=== PATIENT | female | born 1985 | race Caucasian/White ===

== ENCOUNTER → 2017-07-20 | Outpatient (CLI) | payer OTHER ==
[~2017-07-20] MED LIST: ANTI2TAB10 PO; AUGM875T PO; HYDR-3533 PO; NAPR500 PO; OXYC1TAB63 PO; PREN29TA PO; Silv Sulfadiazine-Lidocaine Cr RECTAL
[2017-07-20 11:20] LABS: AUTOMATED NEUTROPHIL # 4.3 TH/MM3 (1.8-7.7); BASOPHIL # 0.1 TH/MM3 (0-0.2); BASOPHIL % 0.9 % (0.0-2.0); EOSINOPHIL # 0.1 TH/MM3 (0-0.4); EOSINOPHIL % 2.3 % (0.0-4.0); HEMATOCRIT 35.9 % (35.0-46.0); HEMOGLOBIN 11.6 GM/DL (11.6-15.3); LYMPH % 22.6 % (9.0-44.0); LYMPHOCYTE # 1.4 TH/MM3 (1.0-4.8); MEAN CELL VOLUME 78.9 FL (80.0-100.0); MEAN CORPUSCULAR HEMOGLOBIN 25.5 PG (27.0-34.0); MEAN CORPUSCULAR HGB CONC 32.4 % (32.0-36.0); MEAN PLATELET VOLUME 8.7 FL (7.0-11.0); MONO % 5.8 % (0.0-8.0); MONOCYTE # 0.4 TH/MM3 (0-0.9); NEUT % 68.4 % (16.0-70.0); PLATELET COUNT 286 TH/MM3 (150-450); RED BLOOD COUNT 4.55 MIL/MM3 (4.00-5.30); WHITE BLOOD COUNT 6.3 TH/MM3 (4.0-11.0)
[2017-07-20 11:23] LABS: BILIRUBIN, URINE NEG (NEG); BLOOD, URINE NEG (NEG); GLUCOSE,URINE NEG (NEG); KETONE, URINE NEG (NEG); MUCUS URINE FEW /lpf (OCC); NITRITE,URINE NEG (NEG); SQUAMOUS EPITHELIAL CELL URINE 1 /hpf (0-5); URINE COLOR LIGHT-YELLOW (YELLW/STRAW); URINE LEUKOCYTE ESTERASE TRACE (NEG)
[2017-07-20 11:29] LABS: AST (GOT) 6 U/L (15-37); BICARBONATE 28.7 MEQ/L (21.0-32.0); BLOOD UREA NITROGEN 8 MG/DL (7-18); CALCIUM 9.4 MG/DL (8.5-10.1); CHLORIDE 104 MEQ/L (98-107); CREATININE 0.77 MG/DL (0.50-1.00); GLOMERULAR FILTRATION RATE 86 ML/MIN (>89); GLUCOSE,FASTING 64 MG/DL (74-99); SODIUM (NA) 140 MEQ/L (136-145)
[2017-07-20 11:31] LABS: ALT (GPT) 13 U/L (10-53)
[2017-07-20 11:33] LABS: ALKALINE PHOSPHATASE 108 U/L (45-117); TOTAL BILIRUBIN ADULT 0.3 MG/DL (0.2-1.0); TOTAL PROTEIN 7.5 GM/DL (6.4-8.2)
== END ==
LOC: CPRE 09:59
PROVIDERS: ATTEND Colon & Rectal Surgery
DX: Z01.812 Encounter for preprocedural laboratory examination (principal); N82.2 Fistula of vagina to small intestine
CPT/HCPCS: 36415; 80053; 81001; 85025

== ENCOUNTER 2017-07-27 09:43 | Observation (INO) | payer OTHER ==
[~2017-07-27] VITALS: Ht 160 cm; Wt 62.8 kg
--- NOTE | 2017-07-27 07:18 | PD.HP.UP ---
H&P Update Note The Pre-Admit History and Physical Examination regarding the above named patient was reviewed (including, but not limited to, vital signs, heart, lungs, co-morbid conditions), and upon re-examination it is noted that: the patient's condition has not significantly changed since the last examination. Francisco Juarez MD Jul 27, 2017 07:18
[~2017-07-27 09:43] MED LIST changes: -AUGM875T PO; -HYDR-3533 PO; -NAPR500 PO; -OXYC1TAB63 PO; -Silv Sulfadiazine-Lidocaine Cr RECTAL
[2017-07-27] MEDS ORDERED: CHLORHEXIDINE GLUCONATE 2 % 1 PACK (2 CLOTHS) TOPICAL PRN (10:15)
[2017-07-27] MEDS ORDERED: METOPROLOL TARTRATE 25 MG TAB PO PRN (10:15)
[2017-07-27] MEDS ORDERED: POVIDONE IODINE 5% (ANTISEPSIS KIT) 4 APPLICATIONS EACH NARE PRN (10:15)
[2017-07-27] MEDS ORDERED: LACTATED RINGER'S 1000 ML IV PRN (10:15)
[2017-07-27] MEDS ORDERED: SODIUM CHLORID 0.9% 500 ML IV PRN (10:15)
[2017-07-27] MEDS ORDERED: ACETAMINOPHEN 1000 MG/100 ML 100 ML IV ONE (11:45)
[2017-07-27] MEDS ORDERED: BUPIVACAINE HCL PF 0.5% 30 ML VIAL ONE (11:51)
[2017-07-27] MEDS ORDERED: LIDOCAINE 1%/EPINEPHrine 1:100,000 SOLN 30 ML VIAL ONE (11:51)
[2017-07-27] MEDS ORDERED: PHENYLEPH/NS 1000 MCG/10 ML SYR IV ONE (12:00)
[2017-07-27] MEDS ORDERED: PROPOFOL 200 MG/20 ML AMP IV ONE (12:00)
[2017-07-27] MEDS ORDERED: ONDANSETRON HCL 4 MG/2 ML VIAL IV PUSH ONE (12:00)
[2017-07-27] MEDS ORDERED: LIDOCAINE HCL 1% PF 5 ML SYRINGE OTHER ONE (12:00)
[2017-07-27] MEDS ORDERED: DEXAMETHASONE SOD PHOS 4 MG/ML VIAL IV ONE (12:00)
[2017-07-27] MEDS ORDERED: LACTATED RINGER'S 1000 ML INJ 1,000 ML IV ONE (12:00)
[2017-07-27] MEDS ORDERED: ESMOLOL HCL 100 MG/10 ML VIAL IV ONE (12:00)
[2017-07-27] MEDS ORDERED: ROCURONIUM INJ 50 MG/5 ML SYRINGE IV PUSH ONE (12:00)
[2017-07-27] MEDS ORDERED: GLYCOPYRROLATE 1 MG/5 ML SYRINGE IV PUSH ONE (12:00)
[2017-07-27] MEDS ORDERED: KETOROLAC TROMETHAMINE 30 MG/ML (IVP) VIAL IV PUSH ONE (12:00)
[2017-07-27] MEDS ORDERED: NEOSTIGMINE 5 MG/5 ML SYRINGE IV PUSH ONE (12:00)
[2017-07-27] MEDS ORDERED: ceFAZolin INJ 1,000 MG VIAL ONE (12:16)
[2017-07-27] MEDS ORDERED: metroNIDAZOLE 500 MG INJ 100 ML IV ONE (12:16)
[2017-07-27] MEDS ORDERED: LOPERAMIDE HCL 2 MG CAP PO PRN (13:30)
[2017-07-27] MEDS ORDERED: DO NOT ADM ANY ANTICOAGULANT DRUGS PRN (13:38)
[2017-07-27] MEDS ORDERED: MIDAZOLAM HCL 2 MG/2 ML VIAL ONE (13:42)
[2017-07-27] MEDS ORDERED: ONDANSETRON ODT 4 MG TAB PO PRN (14:00)
[2017-07-27] MEDS ORDERED: oxyCODONE/ACETAMINOPHEN 5 MG/325 MG TAB PO PRN (14:00)
[2017-07-27] MEDS: LACTATED RINGER'S 1000 ML INJ 1,000 ML IV SCH ×2 (14:30→20:49)
[2017-07-27] MEDS ORDERED: *morphine SULFATE 4 MG/ML PERIprocedure ONLY ONE (14:53)
[2017-07-27 16:00] VITALS: BP 107/55; PULSE 80; RESP 18; TEMP 97.9; O2SAT 97
[2017-07-27 20:00] VITALS: BP 114/73; PULSE 94; RESP 17; TEMP 98; O2SAT 98
[2017-07-27] MEDS: MORPHINE SULFATE 4 MG/ML INJ IV PRN ×2 (20:39→23:19)
[2017-07-28 00:01] VITALS: BP 96/55; PULSE 73; RESP 17; TEMP 98; O2SAT 97
[2017-07-28 04:00] VITALS: BP 105/55; PULSE 80; RESP 17; TEMP 98.2; O2SAT 97
[2017-07-28] MEDS: MORPHINE SULFATE 4 MG/ML INJ IV PRN (05:32)
[2017-07-28] MEDS ORDERED: Silv Sulfadiazine-Lidocaine Cr RECTAL (07:58)
[2017-07-28] MEDS ORDERED: OXYC1TAB63 PO (07:58)
[2017-07-28 08:00] VITALS: BP 104/55; PULSE 88; RESP 16; TEMP 98.3; O2SAT 98
[2017-07-28] MEDS ORDERED: LOPERAMIDE HCL 2 MG CAP PO SCH (12:00)
[2017-07-28] MEDS: SILVER SULFADIAZINE/LIDOCAINE CREAM 60 GM JAR RECTAL SCH ×2 (12:51→12:54)
--- NOTE | 2017-07-28 23:09 | HHI.PR ---
Subjective Remarks C/R Surg POD #1 afebrile, VSS UO good no stools Objective - Vital Signs Date Time Temp Pulse Resp B/P (MAP) Pulse Ox O2 Delivery O2 Flow Rate FiO2 07/28/17 08:00 98.3 88 16 104/55 (71) 98 07/27/17 16:00 Nasal Cannula 2 Other Results PE alert Abd - oft, flat, wounds clean A/P Assessment and Plan Imp: stable post-op OOB start PO local care to anal area dc plans Francisco Juarez MD Jul 28, 2017 23:09
--- NOTE | 2017-07-29 00:09 | MP ---
cc: Francisco Juarez MD DATE OF OPERATION: 07/27/2017 PREOPERATIVE DIAGNOSES: 1. Rectovaginal fistula. 2. History of ulcerative colitis and ileoanal pouch. PROCEDURE PERFORMED: Exam under anesthesia with advancement flap repair of a rectovaginal fistula. POSTOPERATIVE DIAGNOSES: 1. Rectovaginal fistula. 2. History of ulcerative colitis and ileoanal pouch. SURGEON: Francisco Juarez MD IRON CASTER: Vadim Salazar DESCRIPTION OF PROCEDURE: The patient was placed in the supine position. After adequate general anesthesia, she was turned and placed into the prone jackknife position. Her buttocks were taped apart, prepped with Betadine solution and draped in the usual sterile fashion. Anal canal was gently dilated. Local anesthesia was obtained by injection of 1% Xylocaine/0.5% Marcaine with epinephrine. Examination revealed the pouch anal anastomosis to be fairly patent and nonstrictured. Distal to the anastomosis was a small fistula which passed readily into the vaginal introitus. This was consistent with her symptoms of vaginal flatus and discharge. The ileoanal pouch itself was examined and felt to be pretty unremarkable. First, elliptical incision was made over the midline, creating a flap of anal skin, which was freed from its attachments in the subcutaneous tissue. Dissection then proceeded in unroofing the area of the fistula and the tract itself was curetted. This is a relatively short tract with very little muscle involved. After adequately curetting the tract, the opening was closed securely with several interrupted Vicryl sutures. The muscle around the fistula opening appeared to be quite healthy. After complete closure, the island of skin was advanced into the rectum and sutured to the edge of rectal mucosa with interrupted Vicryl sutures. The lateral parts of the flap were then secured with other Vicryl stitches. The distal part of the flap was closed loosely to allow some drainage. At completion, the flap appeared to have adequate coverage of the fistula and did have a good color for viability. Small Surgicel dressing placed in the anal canal and a large fluff dressing placed externally. The patient tolerated the procedure quite well and was brought to the recovery room in stable condition. Sponge and needle counts were correct at the end of the procedure. MD ZOHRA Diaz/LATONYA , 11:35 PM , 12:07 AM
== END 2017-07-28 14:08 | disposition home or self-care (01) ==
LOC: HSDC 09:43 → N06B 16:00 → HSDC 16:00 → N06B 19:43
PROVIDERS: ADMIT Colon & Rectal Surgery; ATTEND Colon & Rectal Surgery
DX: N82.3 Fistula of vagina to large intestine (principal); K51.90 Ulcerative colitis, unspecified, without complications
CPT/HCPCS: 00902; 45910; 57300; 88304; 96361; 96374; 96376; G0378; J0131; J0690; J1100; J1885; J2250; J2270; J2370; J2405; J2710; J3010; J7120

== ENCOUNTER 2018-03-29 09:22 | Inpatient (IN) ==
[2018-03-29] MEDS ORDERED: Metoprolol Tartrate 25 MG Tablet PO ONE (10:00)
[2018-03-29] MEDS ORDERED: Sodium Chlor 0.9% Inj 500 ML IV.CONT ONE (10:00)
[2018-03-29] MEDS ORDERED: Chlorhexidine Gluconate 2% 1 Pack (2 Cloths) TOPICAL ONE (10:00)
[2018-03-29 10:39] LABS: Baso # (Auto) 0.1 th/mm3 (0.0-0.2); Baso % (Auto) 0.7 % (0.0-2.0); Eos % (Auto) 0.2 % (0.0-4.0); Hematocrit 28.7 % (35.0-46.0); Hemoglobin 9.5 gm/dL (11.6-15.3); Mean Corpuscular Hemoglobin 23.9 pg (27.0-34.0); Mean Corpuscular Volume 72.3 fL (80.0-100.0); Mean Platelet Volume 7.5 fL (7.0-11.0); Mono # (Auto) 0.4 th/mm3 (0.0-0.9); Mono % (Auto) 4.5 % (0.0-8.0); Neut # (Auto) 7.4 th/mm3 (1.8-7.7); Neut % (Auto) 83.6 % (16.0-70.0); Platelet Count 540 th/mm3 (150-450); Red Blood Count 3.97 mil/mm3 (4.00-5.30); Red Cell Distribution Width 15.6 % (11.6-17.2); White Blood Count 8.8 th/mm3 (4.0-11.0)
--- NOTE | 2018-03-29 10:42 | P.HPUP ---
The Pre-Admit History and Physical Examination regarding the above named patient was reviewed (including, but not limited to, vital signs, heart, lungs, co-morbid conditions), and upon re-examination it is noted that: the patient's condition has not significantly changed since the last examination.
[2018-03-29 10:55] LABS: Alanine Aminotransferase 16 U/L (10-53); Albumin 3.3 g/dL (3.4-5.0); Anion Gap 6 meq/L (5-15); Aspartate Aminotransferase 15 U/L (15-37); Blood Urea Nitrogen 9 mg/dL (7-18); Calcium 8.8 mg/dL (8.5-10.1); Chloride 108 meq/L (98-107); Glomerular Filtration Rate 77 mL/min (>89); Glucose,Random 120 mg/dL (74-106); Potassium 4.7 meq/L (3.5-5.1); Sodium 141 meq/L (136-145)
[2018-03-29 10:56] LABS: Alkaline Phosphatase 152 U/L (45-117); Total Protein 8.5 g/dL (6.4-8.2)
[2018-03-29] MEDS ORDERED: Bupivacaine 0.5% Inj 50 ML MDV Vial ONE (11:50)
[2018-03-29] MEDS ORDERED: Neostigmine Inj 5 MG/5 ML Syringe IV.PUSH ONE (12:20)
[2018-03-29] MEDS ORDERED: Lidocaine PF 1% Inj 5 ML Syringe OTHER ONE (12:20)
[2018-03-29] MEDS: ceFAZolin Inj 1 GM in Sodium Chlor 0.9% Inj 100 ML IV.SIG SCH ×5 (12:20→23:31)
[2018-03-29] MEDS ORDERED: Glycopyrrolate Inj 1 MG/5 ML Syringe IV.PUSH ONE (12:20)
[2018-03-29] MEDS ORDERED: Potassium Chlor 40 mEq Premix 40 MEQ/100 ML PIGGYBACK IV.SIG PRN (13:54)
[2018-03-29] MEDS ORDERED: Potassium Chlor 20 mEq Premix 20 MEQ/100 ML PIGGYBACK IV.SIG PRN (13:54)
[2018-03-29] MEDS ORDERED: Naloxone Inj 0.4 MG/ML Vial IV.PUSH PRN (13:54)
[2018-03-29] MEDS ORDERED: Ketorolac Inj 30 MG/ML (IVP) Vial IV.PUSH PRN (13:54)
[2018-03-29] MEDS ORDERED: *Meperidine Inj 25 MG/ML Vial PERIprocedural Use ONLY ONE (14:08)
[2018-03-29] MEDS ORDERED: Morphine Inj 4 MG/ML Vial ONE (14:09)
[2018-03-29] MEDS ORDERED: fentaNYL Citrate Inj 100 MCG/2 ML Ampul ONE (14:09)
[2018-03-29] MEDS ORDERED: KCL 20 mEq/D5W/NaCl 0.9% Inj 1,000 ML ONE (14:36)
[2018-03-29] MEDS ORDERED: *morphine SULFATE 10 MG/ML PERIprocedure ONLY ONE (14:37)
[2018-03-29] MEDS: Morphine Inj 30 MG/30 ML PCA.VIAL PCA PRN (14:45)
[2018-03-29] MEDS: KCL 20 mEq/D5W/NaCl 0.9% Inj 1,000 ML IV.CONT SCH ×2 (14:57→23:29)
[2018-03-29] MEDS: Dextrose 5%/NaCl 0.9% Inj 1,000 ML IV.SIG SCH ×2 (14:57→17:28)
--- NOTE | 2018-03-30 00:11 | MP ---
cc: Francisco Juarez MD, Andrew H MD DATE OF OPERATION: 03/29/2018 PREOPERATIVE DIAGNOSIS: Ileoanal pouch vaginal fistula. PROCEDURES: 1. Exam under anesthesia with vaginoscopy, ileoscopy. 2. Exploratory laparotomy. 3. Loop ileostomy. POSTOPERATIVE DIAGNOSIS Ileoanal pouch vaginal fistula. SURGEON: Francisco Juarez MD CONSUMER EDUCATOR: Vadim Salazar MD DESCRIPTION OF PROCEDURE: The patient was placed in the supine position. After adequate general anesthesia, her legs were placed in universal stirrups and supported appropriately. The abdomen and perineum were then prepped with Betadine solution and draped in the usual sterile fashion. Initially, the anal canal was gently dilated and inspection of the rectovaginal septum confirmed a fistula between the ileoanal pouch and the vaginal introitus. There was more of a complex fistula extending up to the perineum as well. There was no abscess cavity. The distance between the ileal pouch and the vaginal mucosa was extremely thin. The mucosa of the pouch itself did appear to be fairly normal and there was no obvious evidence of Crohn disease. Next, the abdomen was prepped with Betadine solution and draped in the usual sterile fashion. With Dr. Salazar's assistance, the abdomen was opened through an infraumbilical midline incision. Upon entering the abdominal cavity, adhesions to the parietal peritoneum were taken down. Several loops of bowel were teased up out of the pelvis. The efferent limb was identified and loops freed up proximally until an adequate segment was obtained to perform the diverting loop ileostomy. The previous ileostomy closure was more proximal. Circular stab wound was then created in the right lower quadrant and the loop brought up through the stab wound without tension and with good blood supply. An avascular plane was created in the mesentery. The distal end of the loop was closed with a TA 30 stapling firing. The abdomen was irrigated copiously with normal saline. Adequate hemostasis achieved at all sites. The midline incision was closed anatomically reapproximating the midline fascia with a running #1 PDS suture. Subcutaneous tissue was irrigated copiously and the skin closed with a running subcuticular Vicryl suture. Wound area washed with normal saline and dried, sterile dressing of Telfa and gauze applied. Next, the loop ileostomy was matured in the usual Traci fashion by creating enterotomy proximal to the staple line and the proximal limb matured with a row of interrupted chromic catgut sutures around the circumference. At completion, the stoma was viable and was patent to the fascial level. Sterile ileostomy appliance fitted over the new stoma. The patient tolerated the procedure quite well and was brought to the recovery room in stable condition. Sponge and needle counts were correct at the end of the procedure. Francisco Juarez MD [facility]/ , 10:27 PM , 10:35 PM
[2018-03-30] MEDS: KCL 20 mEq/D5W/NaCl 0.9% Inj 1,000 ML IV.CONT SCH (03:23)
[2018-03-30] MEDS: Dextrose 5%/NaCl 0.9% Inj 1,000 ML IV.SIG SCH (03:23)
[2018-03-30] MEDS: ceFAZolin Inj 1 GM in Sodium Chlor 0.9% Inj 100 ML IV.SIG SCH (04:39)
[2018-03-30 05:53] LABS: Baso % (Auto) 0.1 % (0.0-2.0); Hematocrit 22.3 % (35.0-46.0); Hemoglobin 7.3 gm/dL (11.6-15.3); Lymph # (Auto) 0.6 th/mm3 (1.0-4.8); Lymph % (Auto) 5.5 % (9.0-44.0); Mean Corpuscular HGB Conc 32.7 % (32.0-36.0); Mean Corpuscular Hemoglobin 23.9 pg (27.0-34.0); Mean Platelet Volume 7.6 fL (7.0-11.0); Mono # (Auto) 0.4 th/mm3 (0.0-0.9); Mono % (Auto) 4.1 % (0.0-8.0); Neut # (Auto) 9.7 th/mm3 (1.8-7.7); Neut % (Auto) 90.3 % (16.0-70.0); Platelet Count 394 th/mm3 (150-450); Red Blood Count 3.06 mil/mm3 (4.00-5.30); Red Cell Distribution Width 15.3 % (11.6-17.2); White Blood Count 10.7 th/mm3 (4.0-11.0)
[2018-03-30 06:29] LABS: Anion Gap 8 meq/L (5-15); Blood Urea Nitrogen 7 mg/dL (7-18); Calcium 7.6 mg/dL (8.5-10.1); Carbon Dioxide 23.3 meq/L (21.0-32.0); Chloride 114 meq/L (98-107); Glomerular Filtration Rate Greater Than 89 mL/min (>89); Glucose,Random 163 mg/dL (74-106); Potassium 4.2 meq/L (3.5-5.1); Sodium 145 meq/L (136-145)
--- NOTE | 2018-03-30 07:54 | P.PNCS ---
Subjective Colorectal Surgery Post Op Day #: 1 Interval history: afebrile, VSS UO good - nielsen DC'd Objective Result Diagrams: 03/30/18 04:33 03/30/18 04:33 Objective Remarks: PE alert Abd - soft, flat, wound dry, stoma pink Assessment and Plan - Plan Imp: stable post-op OOB decr IVF start PO
[2018-03-30] MEDS: predniSONE 10 MG Tablet PO SCH (08:51)
[2018-03-30] MEDS: Pantoprazole Inj 40 MG Vial IV.PUSH SCH (08:51)
[2018-03-30] MEDS: Sucralfate 1 GM Tablet PO SCH (08:51)
--- NOTE | 2018-03-30 08:56 | P.PNWCN ---
Wound Care Nurse Consult Additional information: Attempted to see patient for new ostomy teaching, patient was unavailable, will attempt again at a later time.
[2018-03-30] MEDS: Dextrose 5%/NaCl 0.45% Inj 1,000 ML IV.CONT SCH ×2 (09:13→23:51)
--- NOTE | 2018-03-30 14:45 | P.PNWCN ---
Wound Care Nurse Consult Description: Received New ostomy teaching consult for stoma from Doctor Juarez Communicated with: NATHANIEL Mccarty and Patient Recommendation: 1. Please Empty pouch when 1/3 to 1/2 full 2. Please change appliance every 3 to 5 days or as needed if leaking. 3. If leaking do not reinforce adhesive edges with tape, please change appliance , using 1 3/4 appliance two piece appliance. 4. Monitor stoma for color and output. Bowel Diversion Stoma - Bowel Stoma Left Lower Abdomen Stoma Appearance: Beefy Red Loop Supporting Jaime: No Collection Device: Two-piece Wafer Size: 1 3/4 Moldable 45mm - Additional Information Additional Information: Patient seen on for new ostomy teaching for new loop ileostomy. Patient is in bed with head of bed elevated upon process description writer's arrival. Reviewed with patient type surgery, common complications, how often to empty pouch, releasing gas from pouch, and stoma appearance. Patient verbalizes understanding. Stoma was visualized through transparent pouch and presents as red, round and protruding and measures ~30mm in diameter. Two piece ostomy appliance in place is dry and intact. Will see patient again tomorrow for follow up teaching.
[2018-03-31 06:01] LABS: Baso % (Auto) 0.6 % (0.0-2.0); Eos % (Auto) 0.5 % (0.0-4.0); Hematocrit 21.4 % (35.0-46.0); Lymph # (Auto) 1.4 th/mm3 (1.0-4.8); Lymph % (Auto) 25.5 % (9.0-44.0); Mean Corpuscular HGB Conc 32.4 % (32.0-36.0); Mean Corpuscular Hemoglobin 23.4 pg (27.0-34.0); Mean Corpuscular Volume 72.2 fL (80.0-100.0); Mean Platelet Volume 7.6 fL (7.0-11.0); Mono # (Auto) 0.3 th/mm3 (0.0-0.9); Neut # (Auto) 3.7 th/mm3 (1.8-7.7); Neut % (Auto) 67.4 % (16.0-70.0); Platelet Count 324 th/mm3 (150-450); Red Blood Count 2.97 mil/mm3 (4.00-5.30); Red Cell Distribution Width 15.3 % (11.6-17.2); White Blood Count 5.5 th/mm3 (4.0-11.0)
[2018-03-31 06:04] LABS: Hemoglobin 6.9 gm/dL (11.6-15.3)
[2018-03-31 06:24] LABS: Anion Gap 6 meq/L (5-15); Blood Urea Nitrogen 7 mg/dL (7-18); Calcium 7.7 mg/dL (8.5-10.1); Carbon Dioxide 25.9 meq/L (21.0-32.0); Chloride 111 meq/L (98-107); Glomerular Filtration Rate Greater Than 89 mL/min (>89); Glucose,Random 91 mg/dL (74-106); Potassium 3.6 meq/L (3.5-5.1); Sodium 143 meq/L (136-145)
[2018-03-31] MEDS ORDERED: Sodium Chlor 0.9% Inj 250 ML IV.SIG SCH (08:00)
[2018-03-31] MEDS: Sucralfate 1 GM Tablet PO SCH (09:43)
[2018-03-31] MEDS: Pantoprazole Inj 40 MG Vial IV.PUSH SCH (09:43)
[2018-03-31] MEDS: predniSONE 10 MG Tablet PO SCH (09:43)
--- NOTE | 2018-03-31 10:35 | P.PNWCN ---
Wound Care Nurse Consult Description: Patient seen for follow up for new ostomy teaching Communicated with: NATHANIEL Shine, and patient Recommendation: 1. Please Empty pouch when 1/3 to 1/2 full 2. Please change appliance every 3 to 5 days or as needed if leaking. 3. If leaking do not reinforce adhesive edges with tape, please change appliance , using 1 3/4 appliance two piece appliance. 4. Monitor stoma for color and output. Bowel Diversion Stoma - Bowel Stoma Right Lower Abdomen Stoma Appearance: Beefy Red, Protruding, Round Loop Supporting Jaime: No Collection Device: Two-piece, Cut to Fit Wafer Drainage Description: Liquid, Brown Wafer Size: [employer] Sensura Chase two piece appliance that fits stoma sizes 3/8 to 2 11/16 inches Stoma Care: Pouch and Wafer Changed Mavis-Stomal Skin Appearance: Intact Mavis-Stomal Surrounding Tissue Sensation Description: No Symptoms - Additional Information Additional Information: Patient seen on for follow up of new ileostomy teaching. Patient changed ileostomy appliance with stand by assistance of investigative writer and NATHANIEL Vaughn. Patient was given step by step instructions during change. New ostomy appliance is a 3/8 to 2 11/16 inch two piece cut to fit Lilian chase from [employer]. Patient tolerated appliance change well.
[2018-03-31] MEDS: Dextrose 5%/NaCl 0.45% Inj 1,000 ML IV.CONT SCH (13:02)
[2018-03-31 21:52] LABS: Baso % (Auto) 0.5 % (0.0-2.0); Eos % (Auto) 0.3 % (0.0-4.0); Hematocrit 29.1 % (35.0-46.0); Hemoglobin 9.7 gm/dL (11.6-15.3); Lymph # (Auto) 1.8 th/mm3 (1.0-4.8); Lymph % (Auto) 22.2 % (9.0-44.0); Mean Corpuscular HGB Conc 33.2 % (32.0-36.0); Mean Corpuscular Volume 75.3 fL (80.0-100.0); Mean Platelet Volume 7.6 fL (7.0-11.0); Mono # (Auto) 0.6 th/mm3 (0.0-0.9); Neut # (Auto) 5.7 th/mm3 (1.8-7.7); Platelet Count 443 th/mm3 (150-450); Red Blood Count 3.87 mil/mm3 (4.00-5.30); Red Cell Distribution Width 16.6 % (11.6-17.2); White Blood Count 8.1 th/mm3 (4.0-11.0)
--- NOTE | 2018-03-31 22:43 | P.PNCS ---
Subjective Colorectal Surgery Post Op Day #: 2 Interval history: afebrile, VSS UO good elda PO Objective Result Diagrams: 03/31/18 21:16 03/31/18 04:46 Objective Remarks: PE alert Abd - soft, flat, wound dry, stoma pink No bleeding Assessment and Plan - Plan Imp: OOB decr IVF - lasix start PO, adv tx PRBC Dc plans
[2018-04-01] MEDS: Dextrose 5%/NaCl 0.45% Inj 1,000 ML IV.CONT SCH (03:05)
[2018-04-01] MEDS: Morphine Inj 30 MG/30 ML PCA.VIAL PCA PRN (06:41)
--- NOTE | 2018-04-01 07:38 | P.PNCS ---
Subjective Colorectal Surgery Post Op Day #: 3 Interval history: s/p diverting ileostomy comfortable, wants to go home Objective Result Diagrams: 03/31/18 21:16 03/31/18 04:46 Objective Remarks: Abdomen soft, nondistended, tender Wound clean Stoma pink, functional Assessment and Plan - Plan Home today with [facility] Followup Dr. Juarez 2 weeks
--- NOTE | 2018-04-01 07:47 | P.DCO ---
- Diagnosis (1) Ileostomy care Status: Acute (2) Ileostomy care Status: Acute - Home Health Nursing Order: Medical education, Wound care and dressing changes - Case Management Consult Case Management Consult-Home Health: Yes - Certification I have seen patient Radha Velez on 04/01/18. My clinical findings support the need for the requested home health care services because: Deconditioned with increased weakness, Limited ability to care for self I certify that my clinical findings support that this patient is homebound because: Post-op weakness
[2018-04-01] MEDS: Sucralfate 1 GM Tablet PO SCH (10:03)
[2018-04-01] MEDS: Pantoprazole Inj 40 MG Vial IV.PUSH SCH (10:03)
[2018-04-01] MEDS: predniSONE 10 MG Tablet PO SCH (10:03)
== END 2018-04-01 13:25 | disposition home health service (06) | DRG 330 ==
LOC: HSDI 09:22 → N07 15:39
PROVIDERS: ADMIT Colon & Rectal Surgery; ATTEND Colon & Rectal Surgery
CPT/HCPCS: 36430; 80048; 80053; 84702; 85025; 86850; 86900; 86901; 86923; 94150; C9113; J0690; J1100; J2175; J2250; J2270; J2405; J2704; J2710; J2765; J3010; J3480; J7042; J7120; J7506; J7512; P9016